=== PATIENT | male | born 1950 | race Caucasian/White ===

== ENCOUNTER 2023-11-10 11:53 | Inpatient (IN) | payer BC ==
[~2023-11-10] VITALS: Ht 185.4 cm; Wt 68.0 kg
[2023-11-10] VITALS (9 sets, daily range): BP systolic 68–106; PULSE 65–118; RESP 18–27; TEMP 97.2–100.7; O2SAT 95–98
[2023-11-10] MEDS: NS 1000 ML IV.SOLN IV ONE (12:02)
[2023-11-10 12:28] LABS: HEMATOCRIT 24.2 % (36-54); HEMOGLOBIN 7.7 g/dL (14.0-18.0); MEAN CORPUSCULAR HEMOGLOBIN 28 pg (27-31); MEAN CORPUSCULAR HGB CONC 32 % (32-36); MEAN CORPUSCULAR VOLUME 88 fL (79.0-98.0); PLATELET COUNT (AUTO) 67 K/uL (130-430); RED BLOOD CELL COUNT(AUTO) 2.76 MIL/uL (4.2-6.2); RED CELL DISTRIBUTION WIDTH 20.5 % (9.0-15.0)
[2023-11-10 12:41] LABS: WHITE BLOOD COUNT (AUTO) 3.6 K/uL (4.8-10.8)
[2023-11-10 12:51] LABS: ALANINE AMINOTRANSFERASE 41 U/L (12-78); ALBUMIN 2.2 g/dL (3.4-4.8); ANION GAP 13 (5-15); ASPARTATE AMINOTRANSFERASE 45 U/L (10-37); BILIRUBIN,DIRECT 0.8 mg/dL (0.0-0.3); CARBON DIOXIDE 24 mmol/L (23-29); CHLORIDE 93 mmol/L (98-107); CREATININE 1.09 mg/dL (0.55-1.30); GLUCOSE 97 mg/dL (74-106); POTASSIUM 3.8 mmol/L (3.5-5.1); SODIUM SERUM 130 mmol/L (136-145); TOTAL BILIRUBIN 2.1 mg/dL (0.0-1.0); TOTAL PROTEIN, SERUM 4.8 g/dL (6.4-8.3); UREA NITROGEN, BLOOD 24 mg/dL (8-21)
[2023-11-10 12:55] LABS: CALCIUM 6.5 mg/dL (8.4-11.0)
[2023-11-10] MEDS: PIPERACILLIN/TAZO 3.375 GM in D5W 50 ML IV ONE (13:10)
[2023-11-10] MEDS ORDERED: PIPERACILLIN/TAZOBACTAM 3.375 GM/VIAL (ZOSYN) IV ONE (13:13)
[2023-11-10 13:15] LABS: BILIRUBIN,URINE NEGATIVE (NEGATIVE); BLOOD, URINE 2+ (NEGATIVE); CLARITY/URINE CLEAR (CLEAR); COLOR,URINE YELLOW (YELLOW); GLUCOSE,URINE NEGATIVE (NEGATIVE); KETONES,URINE TRACE (NEGATIVE); LEUKOCYTE ESTERASE ,URINE NEGATIVE (NEGATIVE); NITRITE, URINE POSITIVE (NEGATIVE); PROTEIN URINE 1+ (NEGATIVE)
[2023-11-10 13:20] LABS: INR > 9.0 (0.80-1.20); PROTHROMBIN TIME 89.6 SECS (9.5-12.5)
[2023-11-10 13:26] LABS: BACTERIA,URINE MANY /HPF (None Seen); WBC,URINE 0-3 /HPF (0-3)
[2023-11-10 13:27] LABS: FINE GRANULAR CASTS,URINE 0-10 /LPF (None Seen)
[2023-11-10 13:38] LABS: COVID19 ANTIGEN SOFIA FIA NEGATIVE (NEGATIVE)
[2023-11-10 13:41] LABS: INFLUENZA TYPE A Negative (NEGATIVE); INFLUENZA TYPE B NEGATIVE (NEGATIVE)
[2023-11-10] MEDS: D5NS 1,000 ML IV ONE (14:00)
[2023-11-10] MEDS ORDERED: ONDANSETRON HCL 4 MG/2 ML VIAL IVP ONE (14:00)
[2023-11-10] MEDS: ALBUMIN HUMAN 25% 100 ML IV ONE (14:01)
[2023-11-10] MEDS: PHYTONADIONE 10 MG/ML AMP IM ONE (14:01)
[2023-11-10] MEDS ORDERED: VALA10002 PO (14:29)
[2023-11-10] MEDS ORDERED: PRED-531 PO (14:29)
[2023-11-10] MEDS ORDERED: [UNRECOGNIZED DRUG - OTHER] PO (14:29)
[2023-11-10] MEDS ORDERED: SULF1TAB48 PO (14:29)
[2023-11-10] MEDS ORDERED: ATOR40TA68 PO (14:29)
[2023-11-10] MEDS ORDERED: LEVO200T PO (14:29)
[2023-11-10] MEDS ORDERED: CYAN500T78 PO (14:30)
[2023-11-10] MEDS ORDERED: CHOL50004 PO (14:30)
[2023-11-10] MEDS ORDERED: ALEN70TA84 PO (14:30)
[2023-11-10] MEDS ORDERED: MULT1CAP34 PO (14:30)
[2023-11-10] MEDS ORDERED: ZINC50TA2 PO (14:30)
[2023-11-10] MEDS ORDERED: FERR-57 PO (14:30)
[2023-11-10] MEDS ORDERED: CALC667T6 PO (14:30)
[2023-11-10] MEDS ORDERED: NOREPINEPHRINE 4 MG/4 ML VIAL IV ONE (14:34)
[2023-11-10 14:47] LABS: ATYPICAL LYMPHOCYTES % 22 % (0-0); BAND % (MANUAL) 2 % (0-6); LYMPHOCYTES % (MANUAL) 36 % (20-46); MONOCYTES % (MANUAL) 1 % (0-11)
[2023-11-10 14:48] LABS: ANISOCYTOSIS 1+; BASOPHILS % (MANUAL) 0 % (0-2); EOSINOPHILS % (MANUAL) 1 % (0-7); HYPOCHROMASIA 1+; PLATELET ESTIMATE DECREASED (ADEQUATE); SMUDGE CELLS FEW
[2023-11-10 14:49] LABS: OVALOCYTES FEW
[2023-11-10] MEDS: AZITHROMYCIN 250 MG in NS 250 ML IV ONE (16:45)
[2023-11-10] MEDS: NOREPINEPHRINE BITARTRATE 4 MG in NS 246 ML IV PRN (17:29)
[2023-11-10] MEDS: ACETAMINOPHEN 500 MG TABLET PO PRN (19:08)
[2023-11-10] MEDS: NOREPINEPHRINE BITARTRATE 8 MG in NS 246 ML IV PRN (20:30)
[2023-11-10] MEDS: PIPERACILLIN/TAZO 3.375 GM in NS 50 ML IV SCH (21:48)
[2023-11-10] MEDS: NOREPINEPHRINE 4 MG/4 ML VIAL IV ONE (22:50)
[2023-11-10] MEDS: HYDROCORTISONE SOD SUCC 100 MG/2 ML VIAL IVP SCH (23:59)
[2023-11-11] VITALS (26 sets, daily range): BP systolic 91–146; PULSE 87–129; RESP 18–35; TEMP 97.5–100.4; O2SAT 89–98
[2023-11-11] MEDS: HYDROCORTISONE SOD SUCC 100 MG/2 ML VIAL ONE (00:01)
[2023-11-11] MEDS: ALBUMIN HUMAN 25% 200 ML IV ONE (00:09)
[2023-11-11] MEDS: NOREPINEPHRINE 4 MG/4 ML VIAL IV ONE ×3 (02:35→07:21)
[2023-11-11] MEDS: IPRATROPIUM/ALBUTEROL SULFATE 3 ML AMPUL.NEB (DUONEB) INH PRN (03:59)
[2023-11-11] MEDS: NOREPINEPHRINE BITARTRATE 8 MG in NS 242 ML IV PRN (07:20)
[2023-11-11] MEDS: ALBUMIN HUMAN 25% 100 ML IV ONE (10:33)
[2023-11-11] MEDS: PHYTONADIONE 10 MG/ML AMP IM ONE (10:33)
[2023-11-11] MEDS ORDERED: VANCOMYCIN HCL 1.25 GM/NS 250 ML IV ONE (12:15)
[2023-11-11] MEDS ORDERED: FLUCONAZOLE 200 mg/ NS 100 ML IV SCH (12:45)
[2023-11-11] MEDS: VANCOMYCIN HCL 1 GM/NS PREMIX 250 ML IV ONE (14:03)
[2023-11-11] MEDS: FLUCONAZOLE 200 mg/ NS 100 ML IV ONE (14:04)
[2023-11-11] MEDS ORDERED: CALCIUM ACETATE PO SCH (21:00)
[2023-11-11] MEDS: NOREPINEPHRINE BITARTRATE 16 MG in NS 234 ML IV PRN (22:31)
[2023-11-11] MEDS: MELATONIN 3 MG TABLET PO ONE (22:43)
[2023-11-12] VITALS (19 sets, daily range): BP systolic 71–140; PULSE 94–136; RESP 8–36; TEMP 97.5–97.8; O2SAT 81–100
[2023-11-12] MEDS: NS 1000 ML IV.SOLN IV ONE (02:45)
[2023-11-12] MEDS ORDERED: PHENYLEPHRINE HCL 100 MG in NS 240 ML IV PRN (03:30)
[2023-11-12] MEDS: VASOPRESSIN 20 UNITS in NS 99 ML IV PRN (03:30)
[2023-11-12] MEDS: NS 250 ML IV ONE (03:30)
[2023-11-12 03:34] LABS: BLOOD GAS PCO2 17.8 mmHg (35.0-48.0); BLOOD GAS PH 7.393 (7.350-7.450)
[2023-11-12 03:35] LABS: ABG O2 SAT% ESTIMATE 92.6 % (94.0-98.0); BLOOD GAS BASE EXCESS -12.6 mmol/L (-2.0-3.0); BLOOD GAS HCO3 10.6 mmol/L (21.0-28.0); BLOOD GAS PO2 62.5 mmHg (83.0-108.0); FRACTIONATED INSPIRED OXYGEN 0.48 % (0.21-100.00)
[2023-11-12] MEDS: SODIUM BICARBONATE 8.4% JECT 100 MEQ in D5W 1,000 ML IVP SCH (03:45)
[2023-11-12] MEDS: SODIUM BICARBONATE 8.4% JECT 50 MEQ/50 ML SYRINGE IVP ONE ×3 (03:45→13:14)
[2023-11-12] MEDS: SODIUM BICARBONATE 8.4% JECT 50 MEQ/50 ML SYRINGE ONE ×4 (04:39→13:13)
[2023-11-12] MEDS: VASOPRESSIN 20 UNITS/ML VIAL IV ONE (04:40)
[2023-11-12] MEDS: NOREPINEPHRINE 4 MG/4 ML VIAL IV ONE (05:34)
[2023-11-12] MEDS: LEVOTHYROXINE SODIUM 0.125 MG TABLET PO SCH (06:36)
[2023-11-12 06:37] LABS: TOTAL IRON BIND. CAPACITY 147 ug/dL (250-450)
[2023-11-12 06:40] LABS: ANION GAP 22 (5-15); CARBON DIOXIDE 16 mmol/L (23-29); CHLORIDE 101 mmol/L (98-107); CREATININE 1.51 mg/dL (0.55-1.30); GLUCOSE 188 mg/dL (74-106); POTASSIUM 4.3 mmol/L (3.5-5.1); SODIUM SERUM 139 mmol/L (136-145); UREA NITROGEN, BLOOD 31 mg/dL (8-21)
[2023-11-12 08:00] LABS: CALCIUM 5.8 mg/dL (8.4-11.0)
[2023-11-12 08:12] LABS: ABG O2 SAT% ESTIMATE 99.1 % (94.0-98.0); ALLEN'S TEST POSITIVE (P); BLOOD GAS BASE EXCESS -13.4 mmol/L (-2.0-3.0); BLOOD GAS PCO2 26.1 mmHg (35.0-48.0); BLOOD GAS PH 7.279 (7.350-7.450); BLOOD GAS PO2 175.7 mmHg (83.0-108.0)
[2023-11-12 08:13] LABS: HEMATOCRIT 27.3 % (36-54); HEMOGLOBIN 8.3 g/dL (14.0-18.0); MEAN CORPUSCULAR HEMOGLOBIN 28 pg (27-31); MEAN CORPUSCULAR HGB CONC 30 % (32-36); MEAN CORPUSCULAR VOLUME 93 fL (79.0-98.0); RED BLOOD CELL COUNT(AUTO) 2.94 MIL/uL (4.2-6.2); RED CELL DISTRIBUTION WIDTH 21.2 % (9.0-15.0); WHITE BLOOD COUNT (AUTO) 6.1 K/uL (4.8-10.8)
[2023-11-12 08:26] LABS: PLATELET COUNT (AUTO) 37 K/uL (130-430)
[2023-11-12] MEDS ORDERED: PROPOFOL 200MG/ 20ML VIAL (DIPRIVAN) IV ONE (08:30)
[2023-11-12] MEDS ORDERED: SULFAMETHOXAZOLE/TRIMETHOPR DS 1 TABLET PO SCH (09:00)
[2023-11-12] MEDS ORDERED: valACYclovir HCL 500 MG TABLET PO SCH (09:00)
[2023-11-12] MEDS ORDERED: CHOLECALCIFEROL (VITAMIN D3) 5,000 UNIT TABLET PO SCH (09:00)
[2023-11-12] MEDS ORDERED: CYANOCOBALAMIN (VITAMIN B-12) 1,000 MCG TABLET PO SCH (09:00)
[2023-11-12] MEDS: MIDAZOLAM IN NACL,ISO-OSMOT/PF 100 ML IV PRN (10:00)
[2023-11-12 10:07] LABS: ATYPICAL LYMPHOCYTES % 11 % (0-0); BAND % (MANUAL) 5 % (0-6); BASOPHILS % (MANUAL) 0 % (0-2); CORRECTED WHITE BLOOD COUNT 5.5 K/uL (4.5-11.0); EOSINOPHILS % (MANUAL) 0 % (0-7); LYMPHOCYTES % (MANUAL) 27 % (20-46); MONOCYTES % (MANUAL) 2 % (0-11)
[2023-11-12 10:08] LABS: ANISOCYTOSIS 2+; HYPOCHROMASIA 1+; PLATELET ESTIMATE DECREASED (ADEQUATE); POLYCHROMASIA 1+; SMUDGE CELLS FEW
[2023-11-12] MEDS: MIDAZOLAM IN NACL,ISO-OSMOT/PF 100 ML IV ONE (10:08)
[2023-11-12 10:09] LABS: OVALOCYTES FEW; TARGET CELLS RARE
[2023-11-12] MEDS: ALBUMIN HUMAN 25% 200 ML IV ONE (10:11)
[2023-11-12] MEDS: PROPOFOL DRIP 100 ML IV ONE (10:12)
[2023-11-12] MEDS: ALBUMIN HUMAN 25% 50 ML IV ONE ×2 (10:31→13:15)
[2023-11-12 10:52] LABS: ABG O2 SAT% ESTIMATE 98.9 % (94.0-98.0); BLOOD GAS BASE EXCESS -19.7 mmol/L (-2.0-3.0); BLOOD GAS HCO3 12.2 mmol/L (21.0-28.0); BLOOD GAS PO2 239.5 mmHg (83.0-108.0)
[2023-11-12 10:56] LABS: BLOOD GAS PCO2 62.6 mmHg (35.0-48.0); BLOOD GAS PH 6.906 (7.350-7.450)
[2023-11-12 10:57] LABS: ALLEN'S TEST POSITIVE (P)
[2023-11-12] MEDS: NS 500 ML IV ONE (11:00)
[2023-11-12] MEDS ORDERED: ETOMIDATE 20 MG/ 10 ML VIAL (AMIDATE) ONE (12:00)
[2023-11-12] MEDS ORDERED: ROCURONIUM BROMIDE 10 MG/ML (ZEMURON) ONE (12:00)
[2023-11-12] MEDS ORDERED: CALCIUM GLUCONATE 1 GM/10 ML VIAL IV ONE (12:15)
[2023-11-12] MEDS: EPINEPHrine HCL 10 MG in NS 240 ML IV PRN (12:42)
[2023-11-12] MEDS: SODIUM BICARBONATE 8.4% JECT 150 MEQ in 0.45% NACL 1,000 ML IVP SCH (13:31)
[2023-11-12] MEDS: PANTOPRAZOLE SODIUM 40 MG in NS 50 ML IV SCH (13:37)
[2023-11-12] MEDS: ALBUMIN HUMAN 25% 50 ML IV SCH (13:41)
[2023-11-12 14:43] LABS: MONOCYTES # (AUTO) 0.1 K/uL (0.0-1.0)
[2023-11-12] MEDS: CALCIUM GLUC 2 GM/100ML-NACL 100 ML IV SCH (14:45)
[2023-11-12 14:54] LABS: BASOPHILS % (AUTO) 0.2 % (0.0-2.0); EOSINOPHILS % (AUTO) 0.1 % (0.0-4.0); HEMATOCRIT 22.5 % (36-54); LYMPHOCYTES # (AUTO) 1.7 K/uL (1.0-5.5); LYMPHOCYTES % (AUTO) 43.8 % (20.5-51.5); MEAN CORPUSCULAR HEMOGLOBIN 29 pg (27-31); MEAN CORPUSCULAR HGB CONC 27 % (32-36); MEAN CORPUSCULAR VOLUME 108 fL (79.0-98.0); NEUTROPHILS # (AUTO) 2.1 K/uL (1.8-7.7); RED CELL DISTRIBUTION WIDTH 21.3 % (9.0-15.0); WHITE BLOOD COUNT (AUTO) 3.9 K/uL (4.8-10.8)
[2023-11-12 14:57] LABS: NEUTROPHILS % (AUTO) 53.9 % (40.0-70.0); PLATELET COUNT (AUTO) 18 K/uL (130-430)
[2023-11-12 15:11] LABS: ALANINE AMINOTRANSFERASE 287 U/L (12-78); ALBUMIN 2.8 g/dL (3.4-4.8); ANION GAP 23 (5-15); ASPARTATE AMINOTRANSFERASE 742 U/L (10-37); CARBON DIOXIDE 15 mmol/L (23-29); CHLORIDE 103 mmol/L (98-107); CREATININE 1.68 mg/dL (0.55-1.30); GLUCOSE 160 mg/dL (74-106); POTASSIUM 4.9 mmol/L (3.5-5.1); SODIUM SERUM 141 mmol/L (136-145); TOTAL BILIRUBIN 7.4 mg/dL (0.0-1.0); TOTAL PROTEIN, SERUM 4.4 g/dL (6.4-8.3); UREA NITROGEN, BLOOD 37 mg/dL (8-21)
[2023-11-12] MEDS ORDERED: FOLIC ACID 1 MG TABLET PO ONE (15:30)
[2023-11-12 15:31] LABS: CALCIUM 5.8 mg/dL (8.4-11.0)
[2023-11-12] MEDS ORDERED: SULFAMETHOXAZOLE /TRIMETHOPRIM 10 ML in D5W 250 ML IV SCH (21:00)
[2023-11-12] MEDS ORDERED: MEROPENEM 500 MG in NS 50 ML IV SCH (21:00)
[2023-11-13] MEDS ORDERED: SODIUM BICARBONATE 8.4% JECT 150 MEQ in D5W 1,000 ML IVP SCH (03:45)
[2023-11-13] MEDS ORDERED: FOLIC ACID 1 MG TABLET PO SCH (09:00)
== END 2023-11-12 14:52 | DRG 871 ==
LOC: SED 11:53 → SIC 13:58
PROVIDERS: ADMIT Specialist; ATTEND Specialist
PROC: 30233K1 Transfusion of Nonautologous Frozen Plasma into Peripheral Vein, Percutaneous Approach (ICD-10-PCS; principal; 2023-11-10)
PROC: 0BH17EZ Insertion of Endotracheal Airway into Trachea, Via Natural or Artificial Opening (ICD-10-PCS; 2023-11-12)
PROC: 5A1935Z Respiratory Ventilation, Less than 24 Consecutive Hours (ICD-10-PCS; 2023-11-12)
PROC: 5A12012 Performance of Cardiac Output, Single, Manual (ICD-10-PCS; 2023-11-12)
PROC: 0DH67UZ Insertion of Feeding Device into Stomach, Via Natural or Artificial Opening (ICD-10-PCS; 2023-11-12)
DX: A41.9 Sepsis, unspecified organism (principal); D61.810 Antineoplastic chemotherapy induced pancytopenia; R65.21 Severe sepsis with septic shock; J96.00 Acute respiratory failure, unspecified whether with hypoxia or hypercapnia; N17.0 Acute kidney failure with tubular necrosis; J15.69 Pneumonia due to other Gram-negative bacteria; D68.9 Coagulation defect, unspecified; Z20.822 Contact with and (suspected) exposure to COVID-19; Z79.899 Other long term (current) drug therapy; Z88.8 Allergy status to other drugs, medicaments and biological substances; C76.0 Malignant neoplasm of head, face and neck; I46.9 Cardiac arrest, cause unspecified; Z66 Do not resuscitate
CPT/HCPCS: 36415; 36600; 70450-TC; 71045; 80048; 80053; 80076; 81000; 81001; 81015; 82272; 82330; 82784; 82803; 82948; 83540; 83550; 83605; 83615; 84484; 85007; 85025; 85027; 85610; 85651; 85730; 86886; 86900; 86901; 87040; 87081; 87086; 87305; 87497; 92950; 93005; 94002; 94640; 99291; C1751; J0171; J0456; J1450; J1720; J2185; J2470; J2543; J2704; J3370; J3430; J3490; J7030; J7040; J7042; J7050; J7060; P9046; P9059